=== PATIENT | female | born 1955 | race African-American/Black ===

== ENCOUNTER → 2016-11-30 | Outpatient (CLI) | payer MEDICARE, MEDICAID ==
[~2016-11-30] MED LIST: AMOX500C PO; DICL75TA PO; FAMO1TAB37 PO; FERR325T PO; HYDR-3534 PO; MEDR4PAK PO; METR500T10 PO; MORP15TA73 PO; PERI8.6T PO; SALM50I INH; SYMB160A INH; TRIMSOL3 LEFT EYE; VENTAER INH; [UNRECOGNIZED DRUG - REMARK]
[2016-11-30 10:26] LABS: TRANSFERRIN IRON PROFILE 222 MG/DL (200-360)
[2016-11-30 10:28] LABS: FERRITIN 43 NG/ML (8-252)
== END ==
LOC: CLAB 09:27
PROVIDERS: ATTEND Family Medicine
DX: R74.8 Abnormal levels of other serum enzymes (principal); D64.9 Anemia, unspecified; Z92.89 Personal history of other medical treatment
CPT/HCPCS: 36415; 80074; 82728; 83540; 83550

== ENCOUNTER → 2017-03-13 | Outpatient (CLI) | payer MEDICARE, OTHER ==
[~2017-03-13] MED LIST changes: -AMOX500C PO; -HYDR-3534 PO; -MEDR4PAK PO; -METR500T10 PO; -SALM50I INH; -TRIMSOL3 LEFT EYE
[2017-03-13 15:24] LABS: MEAN CELL VOLUME 91.9 FL (80.0-100.0); MEAN CORPUSCULAR HEMOGLOBIN 29.3 PG (27.0-34.0); MEAN CORPUSCULAR HGB CONC 31.9 % (32.0-36.0); PLATELET COUNT 303 TH/MM3 (150-450); RED BLOOD COUNT 3.49 MIL/MM3 (4.00-5.30); RED CELL DISTRIBUTION WIDTH 15.7 % (11.6-17.2); REVIEW FLAG FINAL; WHITE BLOOD COUNT 9.3 TH/MM3 (4.0-11.0)
[2017-03-13 15:51] LABS: ANION GAP 6 MEQ/L (5-15); AST (GOT) 23 U/L (15-37); BICARBONATE 29.5 MEQ/L (21.0-32.0); BLOOD UREA NITROGEN 19 MG/DL (7-18); CHLORIDE 105 MEQ/L (98-107); GLOMERULAR FILTRATION RATE 68 ML/MIN (>89); GLUCOSE,FASTING 89 MG/DL (74-99); MAGNESIUM 2.4 MG/DL (1.5-2.5); POTASSIUM 4.4 MEQ/L (3.5-5.1); SODIUM (NA) 140 MEQ/L (136-145)
[2017-03-13 16:01] LABS: ALKALINE PHOSPHATASE 81 U/L (45-117); ALT (GPT) 24 U/L (10-53); TOTAL BILIRUBIN ADULT 0.3 MG/DL (0.2-1.0)
== END ==
LOC: CLAB 14:54
PROVIDERS: ATTEND Family Medicine
DX: R60.0 Localized edema (principal); R25.2 Cramp and spasm; R06.02 Shortness of breath
CPT/HCPCS: 36415; 80053; 83735; 83880; 84443; 85027

== ENCOUNTER → 2018-05-10 | Outpatient (CLI) | payer MEDICARE, OTHER ==
[~2018-05-10] MED LIST changes: -FERR325T PO; +FERR325T18 PO; +LYRI150C PO; +METR1TAB76 PO; -PERI8.6T PO; +SENN1TAB PO; -[UNRECOGNIZED DRUG - REMARK]
[2018-05-10 10:18] LABS: HEMATOCRIT 30.4 % (35.0-46.0); HEMOGLOBIN 9.8 GM/DL (11.6-15.3); MEAN CELL VOLUME 89.6 FL (80.0-100.0); MEAN CORPUSCULAR HEMOGLOBIN 28.9 PG (27.0-34.0); MEAN CORPUSCULAR HGB CONC 32.3 % (32.0-36.0); MEAN PLATELET VOLUME 8.7 FL (7.0-11.0); PLATELET COUNT 336 TH/MM3 (150-450); RED BLOOD COUNT 3.39 MIL/MM3 (4.00-5.30); RED CELL DISTRIBUTION WIDTH 15.7 % (11.6-17.2); WHITE BLOOD COUNT 12.1 TH/MM3 (4.0-11.0)
[2018-05-10 10:48] LABS: ALBUMIN 3.9 GM/DL (3.4-5.0); AST (GOT) 20 U/L (15-37); BICARBONATE 25.8 MEQ/L (21.0-32.0); BLOOD UREA NITROGEN 20 MG/DL (7-18); CALCIUM 8.2 MG/DL (8.5-10.1); CHLORIDE 107 MEQ/L (98-107); CREATININE 0.85 MG/DL (0.50-1.00); GLOMERULAR FILTRATION RATE 82 ML/MIN (>89); GLUCOSE,FASTING 92 MG/DL (74-99); MAGNESIUM 2.2 MG/DL (1.5-2.5); SODIUM (NA) 142 MEQ/L (136-145)
[2018-05-10 10:57] LABS: ALKALINE PHOSPHATASE 93 U/L (45-117); ALT (GPT) 16 U/L (10-53); FERRITIN 30 NG/ML (8-252); TOTAL BILIRUBIN ADULT 0.2 MG/DL (0.2-1.0); TOTAL PROTEIN 7.6 GM/DL (6.4-8.2)
== END ==
LOC: CLAB 09:00
PROVIDERS: ATTEND Family Medicine
DX: R60.0 Localized edema (principal); D50.9 Iron deficiency anemia, unspecified; R79.89 Other specified abnormal findings of blood chemistry
CPT/HCPCS: 36415; 80053; 82728; 83735; 85027